=== PATIENT | male | born 1985 | race African-American/Black ===

== ENCOUNTER 2018-09-09 11:34 | Emergency (ER) | payer OTHER ==
[2018-09-09 11:56] VITALS: BP 143/79; PULSE 63; TEMP 97.8; BMI 22.8
[2018-09-09] MEDS ORDERED: ONDANSETRON 4 MG/2 ML VIAL IVPUSH ONE (12:32)
[2018-09-09] MEDS ORDERED: SODIUM CHLORIDE 1,000 ML IV STA (12:32)
[2018-09-09] MEDS ORDERED: METOCLOPRAMIDE HCL INJECTION 10 MG/2 ML VIAL IVPUSH ONE (12:33)
--- NOTE | 2018-09-09 12:33 | PDOC ---
History of Present Illness - General Chief Complaint: Nausea/Vomiting Stated Complaint: ABD PAIN Time Seen by Provider: 09/09/18 12:29 History Source: Patient Exam Limitations: No Limitations - History of Present Illness Initial Comments: 09/09/18 12:42 CHIEF COMPLAINT: Vomiting HISTORY OF PRESENT ILLNESS: This is an otherwise healthy 32-year-old male who presents for evaluation of one day of nausea/vomiting. He reports vomiting once on , then again began feeling nauseated after eating [employer] yesterday and has been vomiting "[id number] ever since." He reports 3 normal bowel movements today. He denies fevers/chills or abdominal pain. He reports a similar episode about one month ago, for which she was treated at [facility]. He was given Zofran then and broke out into a rash. No travel or sick contacts. No smoking, social EtOH. Vital signs on arrival are unremarkable. REVIEW OF SYSTEMS: GENERAL/CONSTITUTIONAL: No fever or chills. No weakness. No weight change. HEAD, EYES, EARS, NOSE AND THROAT: No change in vision. No ear pain or discharge. No sore throat. CARDIOVASCULAR: No chest pain or palpitations. RESPIRATORY: No cough, wheezing, or shortness of breath. GASTROINTESTINAL: See HPI. GENITOURINARY: No dysuria, frequency, or change in urination. MUSCULOSKELETAL: No joint or muscle swelling or pain. No neck or back pain. SKIN: No rash or easy bruising. NEUROLOGIC: No headache, vertigo, loss of consciousness, or loss of sensation. PSYCHIATRIC: No depression or anxiety. ENDOCRINE: No increased thirst. No abnormal weight change. HEMATOLOGIC/LYMPHATIC: No anemia, easy bleeding, or history of blood clots. ALLERGIC/IMMUNOLOGIC: No hives or skin allergy. No latex allergy. PHYSICAL EXAM: GENERAL: The patient is awake, alert, and fully oriented, in no acute distress. HEAD: Normal with no signs of trauma. ENT: Pupils equal, round and reactive to light, extraocular movements intact, sclera anicteric, conjunctiva clear. Neck supple. Dry mucous membranes. LUNGS: Clear to auscultation bilaterally. Normal excursion. No respiratory distress or use of accessory muscles. CV: RRR, S1/S2, no MRG. Cap refill < 2 sec. ABDOMEN: Soft, non-distended, tenderness to deep palpation in epigastrium/LUQ without guarding or rebound tenderness. EXTREMITIES: Normal range of motion, no edema. NEUROLOGICAL: Normal speech, normal gait. CN II-XII grossly intact. PSYCH: Normal mood, normal affect. SKIN: Warm, dry, normal turgor, no rashes or lesions noted. Past History - Past Medical History Allergies/Adverse Reactions: Allergies Allergy/AdvReac Type Severity Reaction Status Date / Time No Known Allergies Allergy Verified 09/09/18 11:51 Home Medications: Ambulatory Orders Metoclopramide HCl [Reglan] 10 mg PO Q6H PRN #10 tablet 09/09/18 COPD: No - Suicide/Smoking/Psychosocial Hx Smoking History: Never smoked Have you smoked in the past 12 months: No Number of Cigarettes Smoked Daily: 0 Hx Alcohol Use: No Drug/Substance Use Hx: No *Physical Exam - Vital Signs Last Vital Signs Temp Pulse Resp BP Pulse Ox 97.8 F 63 20 143/79 100 09/09/18 11:51 09/09/18 11:51 09/09/18 11:51 09/09/18 11:51 09/09/18 11:51 Moderate Sedation - Procedure Monitoring Vital Signs: Procedure Monitoring Vital Signs Temperature 97.8 F 09/09/18 11:51 Pulse Rate 63 09/09/18 11:51 Respiratory Rate 20 09/09/18 11:51 Blood Pressure 143/79 09/09/18 11:51 O2 Sat by Pulse Oximetry (%) 100 09/09/18 11:51 ED Treatment Course - LABORATORY CBC & Chemistry Diagram: 09/09/18 12:39 09/09/18 12:39 Medical Decision Making - Medical Decision Making 09/09/18 12:43 A/P: 32-year-old male with nausea/vomiting and signs of dehydration. Differential includes but is not limited to gastritis, gastroenteritis. 1. Labs including CBC, comp, lipase 2. IV fluids 3. Reglan for nausea 4. Reassess 09/09/18 13:32 Labs notable for K 5.3, however slight hemolysis reported. AST mildly elevated at 75. 09/09/18 14:19 Patient feeling better and would like to go home. Tolerated lunch. Followup instructions (including LFTs) and return precautions reviewed. *DC/Admit/Observation/Transfer Diagnosis at time of Disposition: Vomiting and diarrhea - Discharge Dispostion Disposition: HOME Condition at time of disposition: Improved Decision to Admit order: No - Prescriptions Prescriptions: Metoclopramide HCl [Reglan] 10 mg PO Q6H PRN #10 tablet PRN Reason: Nausea - Referrals Referrals: Georgiana Pereira MD [Non Staff, Medical] - - Patient Instructions Printed Discharge Instructions: DI for Viral Gastroenteritis -- Adult, Gastroenteritis Diet Additional Instructions: -Take Reglan as needed for nausea -Stay well-hydrated -Eat a bland diet (instructions enclosed) until you are feeling better -Return here if you are unable to keep down fluids, or for any other concerning symptoms -Otherwise, follow up with your primary care doctor later this week. Please discuss your liver function tests with her as they are slightly outside the normal range (AST 75). - Post Discharge Activity Forms/Work/School Notes: Back to Work
[2018-09-09 12:46] LABS: BASO % 1.2 % (0-2.0); EOS % 0.3 % (0-4.5); HEMATOCRIT 46.5 % (35.4-49); HEMOGLOBIN 15.7 GM/dL (11.7-16.9); LYMPH % 32.3 % (8-40); MCH 29.8 pg (25.7-33.7); MCHC 33.8 g/dl (32.0-35.9); MEAN CELL VOLUME 88.4 fl (80-96); MEAN PLT VOLUME 7.4 fl (7.5-11.1); MONO % 9.5 % (3.8-10.2); NEUT % 56.7 % (42.8-82.8); PLATELET COUNT 268 K/MM3 (134-434); RBC 5.26 M/mm3 (4.00-5.60); RDW 13.7 % (11.9-15.9); WHITE BLOOD COUNT 4.7 K/mm3 (4.0-10.0)
[2018-09-09] MEDS ORDERED: METOCLOPRAMIDE HCL INJECTION 10 MG/2 ML VIAL ONE (13:19)
[2018-09-09 13:20] LABS: ALBUMIN 4.6 g/dl (3.4-5.0); ALK PHOS 59 U/L (45-117); ANION GAP 5 MMOL/L (8-16); BLOOD UREA NITROGEN 12 mg/dL (7-18); CALCIUM 10.2 mg/dL (8.5-10.1); CHLORIDE 100 mmol/L (98-107); CO2 29 mmol/L (21-32); CREATININE 1.2 mg/dL (0.55-1.3); GLUCOSE,RANDOM 93 mg/dL (74-106); LIPASE 106 U/L (73-393); POTASSIUM 5.3 mmol/L (3.5-5.1); SGOT/AST 75 U/L (15-37); SGPT/ALT 52 U/L (13-61); SODIUM 134 mmol/L (136-145); TOT PROT 8.8 g/dl (6.4-8.2)
[2018-09-09] MEDS ORDERED: METOCLOPRAMIDE HCL 10 MG TABLET (FP) PO ONE (18:32)
== END 2018-09-09 14:24 | disposition home or self-care (01) ==
LOC: JER 11:34
PROC: 3E0337Z Introduction of Electrolytic and Water Balance Substance into Peripheral Vein, Percutaneous Approach (ICD-10-PCS; principal; 2018-09-09)
PROC: 3E033GC Introduction of Other Therapeutic Substance into Peripheral Vein, Percutaneous Approach (ICD-10-PCS; 2018-09-09)
DX: K52.9 Noninfective gastroenteritis and colitis, unspecified (principal); A08.4 Viral intestinal infection, unspecified; B97.89 Other viral agents as the cause of diseases classified elsewhere
CPT/HCPCS: 36415; 80053; 83690; 85025; 96361; 96374; 99281-25; J7030